=== PATIENT | female | born 1970 | race Caucasian/White ===

== ENCOUNTER 2018-12-31 07:20 | Day surgery (SDC) | payer OTHER ==
[2018-12-31] MEDS ORDERED: CEFAZOLIN 1 GM INJ (08:16)
[2018-12-31] MEDS ORDERED: FENTAnyl 50 MCG/ML VIAL (08:16)
[2018-12-31] MEDS ORDERED: PROPOFOL 20 ML (08:16)
[2018-12-31] MEDS ORDERED: MIDAZOLAM 1 MG/ML 2 ML INJ (08:16)
[2018-12-31] MEDS ORDERED: ROPIVACAINE 0.5 % 30 ML VIAL (08:55)
[2018-12-31] MEDS ORDERED: METOCLOPRAMIDE 10 MG INJ IV (09:00)
[2018-12-31] MEDS ORDERED: DIPHENHYDRAMINE 50 MG INJ IV (09:00)
[2018-12-31] MEDS ORDERED: FENTAnyl 50 MCG/ML VIAL IV ×3 (09:00)
[2018-12-31] MEDS ORDERED: ONDANSETRON 4 MG INJ IV (09:00)
[2018-12-31] MEDS ORDERED: HYDROmorphONE 1 MG/5 ML IV SYRINGE IV ×3 (09:00)
[2018-12-31] MEDS ORDERED: MEPERIDINE 25 MG INJ IV (09:00)
[2018-12-31] MEDS: BUPIVACAINE 0.5% (SDV) 30 ML INJ (09:03)
[2018-12-31] MEDS ORDERED: KETOROLAC 30 MG INJ (09:30)
[2018-12-31] MEDS ORDERED: ONDANSETRON 4 MG INJ (09:30)
[2018-12-31] MEDS ORDERED: METOCLOPRAMIDE 10 MG INJ (09:30)
[2018-12-31] MEDS ORDERED: DEXAMETHASONE 4 MG/ML 5 ML INJ (09:30)
[2018-12-31] MEDS ORDERED: EPHEDrine 25 MG/5 ML SYG (09:30)
[2018-12-31] MEDS: OXYCODONE/ACETAMINOPHEN (5/325) TAB PO (11:14)
== END 2018-12-31 11:50 | disposition home or self-care (01) ==
LOC: SDS 07:20
DX: D16.31 Benign neoplasm of short bones of right lower limb (principal)
CPT/HCPCS: 28124; 73630; 88304